=== PATIENT | female | born 1960 | race African-American/Black ===

== ENCOUNTER 2020-12-26 14:35 | Inpatient (IN) | payer MEDICARE ==
[2020-12-26] MEDS ORDERED: Bisacodyl 5 MG TAB PO PRN (16:32)
[2020-12-26] MEDS ORDERED: HYDROcodone/Acetaminophen 5/325 mg Tablet PO PRN (16:32)
[2020-12-26] MEDS ORDERED: Ondansetron PF 4 MG/2 ML Vial IVP PRN (16:32)
[2020-12-26] MEDS ORDERED: Dextrose 5% in Water 1,000 ML IV PRN (17:04)
[2020-12-26] MEDS ORDERED: Dextrose 50% Abboject 50 ML SYRINGE SLOW IVP PRN (17:04)
[2020-12-26] MEDS: cefTRIAXone\\ROCEPHIN 2 GM in Sodium Chloride 0.9% 100 ML IVPB SCH (18:25)
[2020-12-26 19:50] LABS: Bacteria/HPF None Seen HPF (None Seen); Bilirubin Negative (Negative); Blood, Urine 1+ (Negative); Clarity Clear (Clear); Glucose, Urine (Dipstick) 500 mg/dL (Negative); Ketone, Urine 20 mg/dL (Negative); Leukocyte Negative Leu/uL (Negative); Nitrite Negative (Negative); Protein, Urine (Dipstick) 70 mg/dL (Neg-Trace); RBC/HPF 0-3 HPF (0-3); Squamous Epithelial 0-3 HPF (0-3); Urobilinogen Normal mg/dL (Less than 2); WBC/HPF 0-3 HPF (0-3)
[2020-12-26 20:03] LABS: Strep pneumo Urine Ag NEGATIVE (NEGATIVE)
[2020-12-26 20:04] LABS: Legionella Urinary Ag Negative (Negative)
[2020-12-26 20:07] LABS: Specific Gravity, Urine 1.054 (1.002-1.036)
[2020-12-26] MEDS: Famotidine/PF 20 mg/2ml Vial SLOW IVP SCH (22:06)
[2020-12-26] MEDS: Benzonatate 100 MG CAP PO PRN (23:07)
[2020-12-26] MEDS: Insulin Regular 300 UNITS/3 ML VIAL SC PRN (23:44)
[2020-12-26] MEDS: guaiFENesin 200 MG TAB PO PRN (23:57)
[2020-12-27] MEDS ORDERED: ALPRAZolam 0.25 MG TAB PO SCH (02:00)
[2020-12-27] MEDS: Acetaminophen 325 MG TAB PO PRN ×2 (03:10→07:21)
[2020-12-27 03:55] LABS: Anion Gap 14 mmol/L (10-20); BUN (Urea Nitrogen) 15 mg/dL (9.8-20.1); Calc. Creatinine Clearance 117 mL/min (70-130); Carbon Dioxide 22 mmol/L (23-31); Chloride 104 mmol/L (98-107); Potassium 4.2 mmol/L (3.5-5.1); Sodium 136 mmol/L (136-145)
[2020-12-27 03:56] LABS: Calcium 9.3 mg/dL (7.8-10.44); Glucose 315 mg/dL (80-115)
[2020-12-27] MEDS ORDERED: hydrALAZINE 20 MG/ML VIAL SLOW IVP SCH (04:04)
[2020-12-27] MEDS: guaiFENesin 200 MG TAB PO PRN (04:48)
[2020-12-27 05:00] LABS: Band 14 % (5-11); Hemoglobin 13.4 g/dL (12.0-16.0); Lymphocytes 10 % (21-51); MDiff Complete? YES; Mean Corpuscular HGB CONC 34.4 g/dL (32.0-36.0); Mean Corpuscular Hemoglobin 29.8 pg (27.0-31.0); Mean Corpuscular Volume 86.6 fL (78.0-98.0); Mean Platelet Volume 8.8 fL (7.4-10.4); Neutrophil 76 % (42-75); Platelet Count 249 thou/uL (130-400); Red Blood Cell (RBC) Count 4.48 mill/uL (4.20-5.40); White Blood Cell (WBC) Count 9.9 thou/uL (4.8-10.8)
[2020-12-27] MEDS: Insulin Regular 300 UNITS/3 ML VIAL SC PRN ×3 (06:49→20:31)
[2020-12-27] MEDS ORDERED: Senokot S 8.6-50 MG TAB PO PRN (08:40)
[2020-12-27] MEDS: Ascorbic Acid 500 mg Chewable Tablet PO SCH (08:57)
[2020-12-27] MEDS: Atorvastatin Calcium 10 MG TAB PO SCH (08:57)
[2020-12-27] MEDS: Enoxaparin Sodium 40 MG/0.4 ML SYRINGE SC SCH ×2 (08:57→20:29)
[2020-12-27] MEDS: Dexamethasone 10 MG/ML VIAL SLOW IVP SCH (08:58)
[2020-12-27] MEDS: hydrALAZINE 25 MG TAB PO SCH ×4 (08:58→20:30)
[2020-12-27] MEDS: Zinc Sulfate 220 MG CAP PO SCH (08:58)
[2020-12-27] MEDS: Labetalol HCl 100 MG/20 ML VIAL SLOW IVP PRN (08:58)
[2020-12-27] MEDS: Famotidine/PF 20 mg/2ml Vial SLOW IVP SCH ×2 (08:58→20:30)
[2020-12-27] MEDS ORDERED: Azithromycin 250 MG TAB PO SCH ×2 (09:00→14:15)
[2020-12-27] MEDS ORDERED: Enoxaparin Sodium 40 MG/0.4 ML SYRINGE SC SCH (09:00)
[2020-12-27] MEDS: HumuLIN 70/30 (300 UNITS/3 ML VIAL) SC SCH ×2 (09:10→20:32)
[2020-12-27] MEDS: BARICITINIB 2 MG TAB PO SCH (10:15)
[2020-12-27] MEDS: metFORMIN 500 MG TAB PO SCH (17:18)
[2020-12-27] MEDS: cefTRIAXone\\ROCEPHIN 2 GM in Sodium Chloride 0.9% 100 ML IVPB SCH (17:24)
[2020-12-28] MEDS: Insulin Regular 300 UNITS/3 ML VIAL SC PRN ×4 (06:23→20:30)
[2020-12-28 06:44] LABS: Hemoglobin A1c 9.7 % (4.0-6.0)
[2020-12-28] MEDS: guaiFENesin 200 MG TAB PO PRN (10:34)
[2020-12-28] MEDS: Benzonatate 100 MG CAP PO PRN (10:36)
[2020-12-28] MEDS: hydrALAZINE 25 MG TAB PO SCH ×4 (10:36→20:28)
[2020-12-28] MEDS: Atorvastatin Calcium 10 MG TAB PO SCH (10:36)
[2020-12-28] MEDS: BARICITINIB 2 MG TAB PO SCH (10:36)
[2020-12-28] MEDS: metFORMIN 500 MG TAB PO SCH ×2 (10:37→18:29)
[2020-12-28] MEDS: Zinc Sulfate 220 MG CAP PO SCH (10:37)
[2020-12-28] MEDS: Ascorbic Acid 500 mg Chewable Tablet PO SCH (10:37)
[2020-12-28] MEDS: Acetaminophen 325 MG TAB PO PRN (10:37)
[2020-12-28] MEDS: Azithromycin 250 MG TAB PO SCH (10:37)
[2020-12-28] MEDS: Dexamethasone 10 MG/ML VIAL SLOW IVP SCH (10:38)
[2020-12-28] MEDS: Enoxaparin Sodium 40 MG/0.4 ML SYRINGE SC SCH ×2 (10:39→20:27)
[2020-12-28] MEDS: Famotidine/PF 20 mg/2ml Vial SLOW IVP SCH ×2 (10:39→21:59)
[2020-12-28] MEDS: HumuLIN 70/30 (300 UNITS/3 ML VIAL) SC SCH ×2 (10:40→20:30)
[2020-12-28] MEDS: Labetalol HCl 100 MG/20 ML VIAL SLOW IVP PRN (11:21)
[2020-12-28] MEDS: cefTRIAXone\\ROCEPHIN 2 GM in Sodium Chloride 0.9% 100 ML IVPB SCH (18:29)
[2020-12-29] MEDS: Insulin Regular 300 UNITS/3 ML VIAL SC PRN ×4 (06:03→19:59)
[2020-12-29] MEDS: BARICITINIB 2 MG TAB PO SCH (08:44)
[2020-12-29] MEDS: Ascorbic Acid 500 mg Chewable Tablet PO SCH (08:45)
[2020-12-29] MEDS: Enoxaparin Sodium 40 MG/0.4 ML SYRINGE SC SCH ×2 (08:45→19:57)
[2020-12-29] MEDS: hydrALAZINE 25 MG TAB PO SCH ×4 (08:46→19:57)
[2020-12-29] MEDS: Zinc Sulfate 220 MG CAP PO SCH (08:46)
[2020-12-29] MEDS: Famotidine/PF 20 mg/2ml Vial SLOW IVP SCH ×2 (08:46→19:57)
[2020-12-29] MEDS: Azithromycin 250 MG TAB PO SCH (08:46)
[2020-12-29] MEDS: metFORMIN 500 MG TAB PO SCH ×2 (08:47→18:36)
[2020-12-29] MEDS: Atorvastatin Calcium 10 MG TAB PO SCH (08:47)
[2020-12-29] MEDS: Dexamethasone 10 MG/ML VIAL SLOW IVP SCH (08:48)
[2020-12-29] MEDS: HumuLIN 70/30 (300 UNITS/3 ML VIAL) SC SCH ×2 (08:50→19:58)
[2020-12-29] MEDS: cefTRIAXone\\ROCEPHIN 2 GM in Sodium Chloride 0.9% 100 ML IVPB SCH (19:34)
[2020-12-29] MEDS: Loperamide HCl 2 MG CAP PO PRN (20:46)
[2020-12-30 04:20] LABS: Hemoglobin 12.6 g/dL (12.0-16.0); Mean Corpuscular HGB CONC 32.5 g/dL (32.0-36.0); Mean Corpuscular Hemoglobin 27.9 pg (27.0-31.0); Mean Platelet Volume 9.4 fL (7.4-10.4); Platelet Count 171 thou/uL (130-400); RBC Distribution Width 13.1 % (11.5-14.5); White Blood Cell (WBC) Count 8.2 thou/uL (4.8-10.8)
[2020-12-30 04:26] LABS: Anion Gap 15 mmol/L (10-20); BUN (Urea Nitrogen) 23 mg/dL (9.8-20.1); CRP (Inflammatory) 5.74 mg/dL (= or < 0.5); Calc. Creatinine Clearance 145 mL/min (70-130); Calcium 9.4 mg/dL (7.8-10.44); Carbon Dioxide 20 mmol/L (23-31); Chloride 108 mmol/L (98-107); Glucose 261 mg/dL (80-115); Sodium 139 mmol/L (136-145)
[2020-12-30 05:38] LABS: Band 3 % (5-11); Lymphocytes 12 % (21-51); MDiff Complete? YES; Metamyelocyte 1 % (0-0); Monocytes 5 % (0-10); Myelocyte 1 % (0-0); Neutrophil 78 % (42-75)
[2020-12-30] MEDS: Insulin Regular 300 UNITS/3 ML VIAL SC PRN ×3 (06:17→19:40)
[2020-12-30] MEDS: BARICITINIB 2 MG TAB PO SCH (09:53)
[2020-12-30] MEDS: Enoxaparin Sodium 40 MG/0.4 ML SYRINGE SC SCH ×2 (09:53→19:37)
[2020-12-30] MEDS: Dexamethasone 10 MG/ML VIAL SLOW IVP SCH (09:53)
[2020-12-30] MEDS: Famotidine/PF 20 mg/2ml Vial SLOW IVP SCH ×2 (09:54→19:37)
[2020-12-30] MEDS: Ascorbic Acid 500 mg Chewable Tablet PO SCH (09:54)
[2020-12-30] MEDS: Atorvastatin Calcium 10 MG TAB PO SCH (09:54)
[2020-12-30] MEDS: Zinc Sulfate 220 MG CAP PO SCH (09:54)
[2020-12-30] MEDS: hydrALAZINE 25 MG TAB PO SCH ×4 (09:54→19:37)
[2020-12-30] MEDS: metFORMIN 500 MG TAB PO SCH ×2 (09:54→17:34)
[2020-12-30] MEDS: HumuLIN 70/30 (300 UNITS/3 ML VIAL) SC SCH (09:55)
[2020-12-30] MEDS: cefTRIAXone\\ROCEPHIN 2 GM in Sodium Chloride 0.9% 100 ML IVPB SCH (17:34)
[2020-12-30] MEDS: Loperamide HCl 2 MG CAP PO PRN (19:37)
[2020-12-30] MEDS ORDERED: Lantus 1000 UNITS/10 ML VIAL SC SCH (21:00)
[2020-12-31] MEDS: Labetalol HCl 100 MG/20 ML VIAL SLOW IVP PRN (03:03)
[2020-12-31 04:05] LABS: Hemoglobin 13.1 g/dL (12.0-16.0); Mean Corpuscular HGB CONC 33.7 g/dL (32.0-36.0); Mean Corpuscular Hemoglobin 28.7 pg (27.0-31.0); Mean Corpuscular Volume 85.3 fL (78.0-98.0); Mean Platelet Volume 9.2 fL (7.4-10.4); Platelet Count 203 thou/uL (130-400); RBC Distribution Width 12.9 % (11.5-14.5); Red Blood Cell (RBC) Count 4.54 mill/uL (4.20-5.40); White Blood Cell (WBC) Count 8.7 thou/uL (4.8-10.8)
[2020-12-31 04:22] LABS: ALT (SGPT) 32 U/L (8-55); AST (SGOT) 48 U/L (5-34); Albumin 3.6 g/dL (3.4-4.8); Alkaline Phosphatase 96 U/L (40-110); Anion Gap 16 mmol/L (10-20); BUN (Urea Nitrogen) 21 mg/dL (9.8-20.1); Bilirubin, Direct 0.3 mg/dL (0.1-0.3); Bilirubin, Total 0.7 mg/dL (0.2-1.2); Calc. Creatinine Clearance 127 mL/min (70-130); Calcium 9.3 mg/dL (7.8-10.44); Carbon Dioxide 21 mmol/L (23-31); Chloride 109 mmol/L (98-107); Glucose 255 mg/dL (80-115); Potassium 3.8 mmol/L (3.5-5.1); Protein, Total 6.9 g/dL (5.8-8.1); Sodium 142 mmol/L (136-145)
[2020-12-31 05:03] LABS: Band 8 % (5-11); Lymphocytes 16 % (21-51); MDiff Complete? YES; Monocytes 1 % (0-10); Neutrophil 75 % (42-75); Nucleated RBC 1 % (0)
[2020-12-31] MEDS: Insulin Regular 300 UNITS/3 ML VIAL SC PRN ×3 (05:36→20:56)
[2020-12-31] MEDS: BARICITINIB 2 MG TAB PO SCH (09:11)
[2020-12-31] MEDS: Enoxaparin Sodium 40 MG/0.4 ML SYRINGE SC SCH ×2 (09:11→20:37)
[2020-12-31] MEDS: metFORMIN 500 MG TAB PO SCH (09:12)
[2020-12-31] MEDS: hydrALAZINE 25 MG TAB PO SCH ×4 (09:12→20:37)
[2020-12-31] MEDS: Atorvastatin Calcium 10 MG TAB PO SCH (09:13)
[2020-12-31] MEDS: Famotidine 20 MG TAB PO SCH ×2 (09:13→20:37)
[2020-12-31] MEDS: Dexamethasone 10 MG/ML VIAL SLOW IVP SCH ×2 (09:13→09:14)
[2020-12-31] MEDS: Ascorbic Acid 500 mg Chewable Tablet PO SCH (09:13)
[2020-12-31] MEDS: Zinc Sulfate 220 MG CAP PO SCH (09:13)
[2020-12-31] MEDS: Lantus 1000 UNITS/10 ML VIAL SC SCH ×2 (09:18→20:38)
[2020-12-31] MEDS: Benzonatate 100 MG CAP PO PRN (20:36)
[2021-01-01] MEDS: Benzonatate 100 MG CAP PO PRN ×3 (06:22→20:45)
[2021-01-01] MEDS: Insulin Regular 300 UNITS/3 ML VIAL SC PRN ×4 (06:22→20:44)
[2021-01-01 06:39] LABS: Anion Gap 14 mmol/L (10-20); BUN (Urea Nitrogen) 19 mg/dL (9.8-20.1); Calc. Creatinine Clearance 133 mL/min (70-130); Calcium 9.5 mg/dL (7.8-10.44); Carbon Dioxide 21 mmol/L (23-31); Chloride 107 mmol/L (98-107); Glucose 267 mg/dL (80-115); Potassium 4.4 mmol/L (3.5-5.1); Sodium 138 mmol/L (136-145)
[2021-01-01 06:44] LABS: Hemoglobin 14.1 g/dL (12.0-16.0); Mean Corpuscular HGB CONC 33.2 g/dL (32.0-36.0); Mean Corpuscular Volume 87.5 fL (78.0-98.0); Mean Platelet Volume 9.6 fL (7.4-10.4); Platelet Count 235 thou/uL (130-400); RBC Distribution Width 13.1 % (11.5-14.5); Red Blood Cell (RBC) Count 4.86 mill/uL (4.20-5.40); White Blood Cell (WBC) Count 10.8 thou/uL (4.8-10.8)
[2021-01-01 07:30] LABS: Band 5 % (5-11); Lymphocytes 13 % (21-51); MDiff Complete? YES; Monocytes 12 % (0-10); Neutrophil 70 % (42-75); Nucleated RBC 1 % (0); Platelet Morphology Comment Appears Adequate; RBC Morphology Normal
[2021-01-01] MEDS: Ascorbic Acid 500 mg Chewable Tablet PO SCH (08:32)
[2021-01-01] MEDS: BARICITINIB 2 MG TAB PO SCH (08:33)
[2021-01-01] MEDS: Famotidine 20 MG TAB PO SCH ×2 (08:33→20:43)
[2021-01-01] MEDS: Dexamethasone 10 MG/ML VIAL SLOW IVP SCH (08:33)
[2021-01-01] MEDS: Atorvastatin Calcium 10 MG TAB PO SCH (08:33)
[2021-01-01] MEDS: Zinc Sulfate 220 MG CAP PO SCH (08:33)
[2021-01-01] MEDS: hydrALAZINE 25 MG TAB PO SCH ×3 (08:33→17:13)
[2021-01-01] MEDS: Lantus 1000 UNITS/10 ML VIAL SC SCH ×2 (08:34→20:44)
[2021-01-01] MEDS: Enoxaparin Sodium 40 MG/0.4 ML SYRINGE SC SCH ×2 (08:35→20:43)
[2021-01-01] MEDS: guaiFENesin 200 MG TAB PO PRN (12:07)
[2021-01-01] MEDS ORDERED: Insulin Regular 300 UNITS/3 ML VIAL SC SCH (18:30)
[2021-01-02 06:44] LABS: Hemoglobin 13.7 g/dL (12.0-16.0); Mean Corpuscular HGB CONC 33.7 g/dL (32.0-36.0); Mean Corpuscular Hemoglobin 28.9 pg (27.0-31.0); Mean Corpuscular Volume 85.9 fL (78.0-98.0); Mean Platelet Volume 9.3 fL (7.4-10.4); Platelet Count 259 thou/uL (130-400); RBC Distribution Width 12.9 % (11.5-14.5); Red Blood Cell (RBC) Count 4.72 mill/uL (4.20-5.40); White Blood Cell (WBC) Count 10.6 thou/uL (4.8-10.8)
[2021-01-02 06:56] LABS: Anion Gap 16 mmol/L (10-20); BUN (Urea Nitrogen) 24 mg/dL (9.8-20.1); Calc. Creatinine Clearance 108 mL/min (70-130); Calcium 9.4 mg/dL (7.8-10.44); Carbon Dioxide 18 mmol/L (23-31); Chloride 104 mmol/L (98-107); Glucose 411 mg/dL (80-115); Potassium 4.2 mmol/L (3.5-5.1); Sodium 134 mmol/L (136-145)
[2021-01-02 08:23] LABS: Lymphocytes 13 % (21-51); MDiff Complete? YES; Monocytes 6 % (0-10); Neutrophil 81 % (42-75); Nucleated RBC 1 % (0); Platelet Morphology Comment Appears Adequate
[2021-01-02] MEDS: Loperamide HCl 2 MG CAP PO PRN (08:41)
[2021-01-02] MEDS: Ascorbic Acid 500 mg Chewable Tablet PO SCH (08:42)
[2021-01-02] MEDS: Famotidine 20 MG TAB PO SCH ×2 (08:42→21:29)
[2021-01-02] MEDS: Atorvastatin Calcium 10 MG TAB PO SCH (08:43)
[2021-01-02] MEDS: Zinc Sulfate 220 MG CAP PO SCH (08:43)
[2021-01-02] MEDS: hydrALAZINE 25 MG TAB PO SCH ×5 (08:43→21:29)
[2021-01-02] MEDS: BARICITINIB 2 MG TAB PO SCH (08:43)
[2021-01-02] MEDS: Lantus 1000 UNITS/10 ML VIAL SC SCH ×2 (08:44→21:30)
[2021-01-02] MEDS: Enoxaparin Sodium 40 MG/0.4 ML SYRINGE SC SCH ×2 (08:44→21:29)
[2021-01-02] MEDS: Dexamethasone 10 MG/ML VIAL SLOW IVP SCH (08:44)
[2021-01-02] MEDS: Insulin Regular 300 UNITS/3 ML VIAL SC PRN ×3 (13:50→21:31)
[2021-01-03] MEDS: Insulin Regular 300 UNITS/3 ML VIAL SC PRN ×4 (06:30→20:08)
[2021-01-03] MEDS: Enoxaparin Sodium 40 MG/0.4 ML SYRINGE SC SCH ×2 (08:09→20:00)
[2021-01-03] MEDS: Ascorbic Acid 500 mg Chewable Tablet PO SCH (08:10)
[2021-01-03] MEDS: Atorvastatin Calcium 10 MG TAB PO SCH (08:10)
[2021-01-03] MEDS: BARICITINIB 2 MG TAB PO SCH (08:10)
[2021-01-03] MEDS: Zinc Sulfate 220 MG CAP PO SCH (08:10)
[2021-01-03] MEDS: hydrALAZINE 25 MG TAB PO SCH ×4 (08:11→20:00)
[2021-01-03] MEDS: Famotidine 20 MG TAB PO SCH ×2 (08:11→20:00)
[2021-01-03] MEDS: Dexamethasone 10 MG/ML VIAL SLOW IVP SCH (08:11)
[2021-01-03] MEDS: Lantus 1000 UNITS/10 ML VIAL SC SCH ×2 (08:12→20:02)
[2021-01-03 12:10] LABS: Hemoglobin 13.4 g/dL (12.0-16.0); Mean Corpuscular HGB CONC 33.2 g/dL (32.0-36.0); Mean Corpuscular Hemoglobin 28.8 pg (27.0-31.0); Mean Corpuscular Volume 86.7 fL (78.0-98.0); Mean Platelet Volume 9.2 fL (7.4-10.4); Platelet Count 302 thou/uL (130-400); Red Blood Cell (RBC) Count 4.67 mill/uL (4.20-5.40); White Blood Cell (WBC) Count 14.8 thou/uL (4.8-10.8)
[2021-01-03 12:13] LABS: Anion Gap 16 mmol/L (10-20); BUN (Urea Nitrogen) 25 mg/dL (9.8-20.1); Calc. Creatinine Clearance 113 mL/min (70-130); Calcium 9.6 mg/dL (7.8-10.44); Carbon Dioxide 18 mmol/L (23-31); Chloride 104 mmol/L (98-107); Glucose 435 mg/dL (80-115); Potassium 4.5 mmol/L (3.5-5.1); Sodium 133 mmol/L (136-145)
[2021-01-03 12:18] LABS: ALT (SGPT) 28 U/L (8-55); AST (SGOT) 31 U/L (5-34); Albumin 3.5 g/dL (3.4-4.8); Alkaline Phosphatase 140 U/L (40-110); Bilirubin, Direct 0.3 mg/dL (0.1-0.3); Bilirubin, Total 0.6 mg/dL (0.2-1.2); Protein, Total 7.1 g/dL (5.8-8.1)
[2021-01-03 12:55] LABS: Band 2 % (5-11); Lymphocytes 3 % (21-51); MDiff Complete? YES; Monocytes 2 % (0-10); Neutrophil 93 % (42-75); Platelet Morphology Comment Appears Adequate; RBC Morphology Normal; Vacuoles SLIGHT
[2021-01-04] MEDS: Insulin Regular 300 UNITS/3 ML VIAL SC PRN ×3 (06:33→17:00)
[2021-01-04] MEDS: Dexamethasone 10 MG/ML VIAL SLOW IVP SCH ×2 (09:20→22:05)
[2021-01-04] MEDS: hydrALAZINE 25 MG TAB PO SCH ×4 (09:20→22:07)
[2021-01-04] MEDS: BARICITINIB 2 MG TAB PO SCH (09:20)
[2021-01-04] MEDS: Zinc Sulfate 220 MG CAP PO SCH (09:21)
[2021-01-04] MEDS: Ascorbic Acid 500 mg Chewable Tablet PO SCH (09:21)
[2021-01-04] MEDS: Atorvastatin Calcium 10 MG TAB PO SCH (09:21)
[2021-01-04] MEDS: Lantus 1000 UNITS/10 ML VIAL SC SCH ×2 (09:21→22:08)
[2021-01-04] MEDS: Enoxaparin Sodium 40 MG/0.4 ML SYRINGE SC SCH ×2 (09:21→22:05)
[2021-01-04] MEDS: Famotidine 20 MG TAB PO SCH ×2 (09:21→22:07)
[2021-01-04] MEDS: guaiFENesin 200 MG TAB PO PRN ×2 (09:22→17:01)
[2021-01-04] MEDS: Albuterol 200 PUFF (6.7GM INHALER) INH PRN (09:23)
[2021-01-04 10:03] LABS: Hemoglobin 13.7 g/dL (12.0-16.0); Mean Corpuscular HGB CONC 32.7 g/dL (32.0-36.0); Mean Corpuscular Hemoglobin 28.4 pg (27.0-31.0); Red Blood Cell (RBC) Count 4.81 mill/uL (4.20-5.40)
[2021-01-04 10:09] LABS: Anion Gap 15 mmol/L (10-20); BUN (Urea Nitrogen) 23 mg/dL (9.8-20.1); CRP (Inflammatory) 3.78 mg/dL (= or < 0.5); Calc. Creatinine Clearance 134 mL/min (70-130); Calcium 9.6 mg/dL (7.8-10.44); Carbon Dioxide 22 mmol/L (23-31); Chloride 108 mmol/L (98-107); Glucose 161 mg/dL (80-115); Potassium 3.7 mmol/L (3.5-5.1); Sodium 141 mmol/L (136-145)
[2021-01-04 10:17] LABS: Band 3 % (5-11); Eosinophils 1 % (0-10); Lymphocytes 16 % (21-51); MDiff Complete? YES; Monocytes 2 % (0-10); Neutrophil 78 % (42-75); Platelet Count 335 thou/uL (130-400); Platelet Morphology Comment Appears Adequate
[2021-01-04] MEDS: Benzonatate 100 MG CAP PO PRN (12:24)
[2021-01-04] MEDS ORDERED: Insulin Regular 300 UNITS/3 ML VIAL SC SCH (18:15)
[2021-01-04 21:34] LABS: Glucose 617 mg/dL (80-115)
[2021-01-04] MEDS ORDERED: Dextrose 50% Abboject 50 ML SYRINGE SLOW IVP PRN (21:38)
[2021-01-04] MEDS ORDERED: Dextrose 5% in Water 1,000 ML IV PRN (21:38)
[2021-01-04] MEDS ORDERED: HumaLOG 300 UNITS/3 ML VIAL SC SCH (22:00)
[2021-01-05] MEDS: HumaLOG 300 UNITS/3 ML VIAL SC PRN ×4 (05:31→20:51)
[2021-01-05] MEDS: Enoxaparin Sodium 40 MG/0.4 ML SYRINGE SC SCH ×2 (07:49→20:49)
[2021-01-05] MEDS: Ascorbic Acid 500 mg Chewable Tablet PO SCH (07:49)
[2021-01-05] MEDS: hydrALAZINE 25 MG TAB PO SCH ×4 (07:49→20:50)
[2021-01-05] MEDS: Dexamethasone 10 MG/ML VIAL SLOW IVP SCH ×2 (07:50→20:49)
[2021-01-05] MEDS: Atorvastatin Calcium 10 MG TAB PO SCH (07:50)
[2021-01-05] MEDS: Zinc Sulfate 220 MG CAP PO SCH (07:50)
[2021-01-05] MEDS: BARICITINIB 2 MG TAB PO SCH (07:50)
[2021-01-05] MEDS: Benzonatate 100 MG CAP PO PRN ×3 (07:50→20:30)
[2021-01-05] MEDS: Famotidine 20 MG TAB PO SCH ×2 (07:50→20:49)
[2021-01-05] MEDS: Lantus 1000 UNITS/10 ML VIAL SC SCH ×2 (07:51→20:50)
[2021-01-05 08:53] LABS: Anion Gap 16 mmol/L (10-20); BUN (Urea Nitrogen) 21 mg/dL (9.8-20.1); Calc. Creatinine Clearance 129 mL/min (70-130); Calcium 9.2 mg/dL (7.8-10.44); Carbon Dioxide 19 mmol/L (23-31); Chloride 105 mmol/L (98-107); Glucose 346 mg/dL (80-115); Hemoglobin 12.4 g/dL (12.0-16.0); Mean Corpuscular HGB CONC 32.5 g/dL (32.0-36.0); Mean Corpuscular Hemoglobin 28.2 pg (27.0-31.0); Potassium 4.7 mmol/L (3.5-5.1); RBC Distribution Width 12.9 % (11.5-14.5); Red Blood Cell (RBC) Count 4.38 mill/uL (4.20-5.40); Sodium 135 mmol/L (136-145)
[2021-01-05 09:31] LABS: Hypersemented Neutrophil SLIGHT; Lymphocytes 4 % (21-51); MDiff Complete? YES; Monocytes 2 % (0-10); Neutrophil 94 % (42-75); Platelet Count 308 thou/uL (130-400); Platelet Morphology Comment Appears Adequate; Vacuoles SLIGHT; White Blood Cell (WBC) Count 10.1 thou/uL (4.8-10.8)
[2021-01-05] MEDS: Albuterol 200 PUFF (6.7GM INHALER) INH PRN ×3 (12:55→21:10)
[2021-01-05] MEDS: guaiFENesin 200 MG TAB PO PRN (16:01)
[2021-01-05] MEDS: Pantoprazole 40 MG VIAL IVP SCH (20:55)
[2021-01-06] MEDS: Benzonatate 100 MG CAP PO PRN (02:14)
[2021-01-06] MEDS: HumaLOG 300 UNITS/3 ML VIAL SC PRN ×4 (05:53→20:53)
[2021-01-06] MEDS: BARICITINIB 2 MG TAB PO SCH (08:45)
[2021-01-06] MEDS: Zinc Sulfate 220 MG CAP PO SCH (08:45)
[2021-01-06] MEDS: hydrALAZINE 25 MG TAB PO SCH ×4 (08:46→20:51)
[2021-01-06] MEDS: Ascorbic Acid 500 mg Chewable Tablet PO SCH (08:46)
[2021-01-06] MEDS: Atorvastatin Calcium 10 MG TAB PO SCH (08:46)
[2021-01-06] MEDS: Famotidine 20 MG TAB PO SCH ×2 (08:46→20:51)
[2021-01-06] MEDS: Dexamethasone 10 MG/ML VIAL SLOW IVP SCH ×2 (08:46→20:51)
[2021-01-06] MEDS: metFORMIN 500 MG TAB PO SCH ×2 (08:46→18:08)
[2021-01-06] MEDS: Enoxaparin Sodium 40 MG/0.4 ML SYRINGE SC SCH ×2 (08:47→20:51)
[2021-01-06] MEDS: Lantus 1000 UNITS/10 ML VIAL SC SCH ×2 (08:49→20:52)
[2021-01-06] MEDS: Pantoprazole 40 MG VIAL IVP SCH ×2 (09:14→11:17)
[2021-01-06 09:21] LABS: ALT (SGPT) 34 U/L (8-55); AST (SGOT) 17 U/L (5-34); Albumin 3.4 g/dL (3.4-4.8); Alkaline Phosphatase 99 U/L (40-110); Anion Gap 12 mmol/L (10-20); BUN (Urea Nitrogen) 30 mg/dL (9.8-20.1); Bilirubin, Direct 0.2 mg/dL (0.1-0.3); Bilirubin, Total 0.5 mg/dL (0.2-1.2); Calc. Creatinine Clearance 102 mL/min (70-130); Calcium 9.6 mg/dL (7.8-10.44); Carbon Dioxide 23 mmol/L (23-31); Chloride 103 mmol/L (98-107); Glucose 467 mg/dL (80-115); Potassium 4.7 mmol/L (3.5-5.1); Protein, Total 6.8 g/dL (5.8-8.1); Sodium 133 mmol/L (136-145)
[2021-01-06 09:27] LABS: Hemoglobin 12.4 g/dL (12.0-16.0); Lymphocytes 8 % (21-51); MDiff Complete? YES; Mean Corpuscular HGB CONC 32.2 g/dL (32.0-36.0); Mean Corpuscular Hemoglobin 28.4 pg (27.0-31.0); Mean Corpuscular Volume 88.2 fL (78.0-98.0); Mean Platelet Volume 8.9 fL (7.4-10.4); Monocytes 5 % (0-10); Neutrophil 87 % (42-75); Platelet Count 380 thou/uL (130-400); RBC Distribution Width 13.2 % (11.5-14.5); Red Blood Cell (RBC) Count 4.38 mill/uL (4.20-5.40); White Blood Cell (WBC) Count 11.8 thou/uL (4.8-10.8)
[2021-01-06] MEDS: guaiFENesin 200 MG TAB PO PRN (18:06)
[2021-01-06 18:30] LABS: Glucose 567 mg/dL (80-115)
[2021-01-07] MEDS: HumaLOG 300 UNITS/3 ML VIAL SC PRN ×4 (06:22→20:48)
[2021-01-07 07:07] LABS: Mean Corpuscular HGB CONC 33.5 g/dL (32.0-36.0); Mean Corpuscular Hemoglobin 29.6 pg (27.0-31.0); Mean Corpuscular Volume 88.3 fL (78.0-98.0); Mean Platelet Volume 8.8 fL (7.4-10.4); Platelet Count 368 thou/uL (130-400); Red Blood Cell (RBC) Count 4.06 mill/uL (4.20-5.40)
[2021-01-07 07:17] LABS: Anion Gap 10 mmol/L (10-20); BUN (Urea Nitrogen) 29 mg/dL (9.8-20.1); Calc. Creatinine Clearance 127 mL/min (70-130); Calcium 9.4 mg/dL (7.8-10.44); Carbon Dioxide 25 mmol/L (23-31); Chloride 103 mmol/L (98-107); Glucose 318 mg/dL (80-115); Potassium 4.5 mmol/L (3.5-5.1); Sodium 133 mmol/L (136-145)
[2021-01-07 07:42] LABS: Band 1 % (5-11); Lymphocytes 9 % (21-51); MDiff Complete? YES; Monocytes 1 % (0-10); Neutrophil 89 % (42-75); Platelet Morphology Comment Appears Adequate; RBC Morphology Normal
[2021-01-07] MEDS: Ascorbic Acid 500 mg Chewable Tablet PO SCH (07:43)
[2021-01-07] MEDS: Enoxaparin Sodium 40 MG/0.4 ML SYRINGE SC SCH ×2 (07:43→20:50)
[2021-01-07] MEDS: hydrALAZINE 25 MG TAB PO SCH ×4 (07:43→20:50)
[2021-01-07] MEDS: BARICITINIB 2 MG TAB PO SCH (07:44)
[2021-01-07] MEDS: Benzonatate 100 MG CAP PO PRN ×2 (07:44→16:26)
[2021-01-07] MEDS: Atorvastatin Calcium 10 MG TAB PO SCH (07:44)
[2021-01-07] MEDS: Zinc Sulfate 220 MG CAP PO SCH (07:44)
[2021-01-07] MEDS: metFORMIN 500 MG TAB PO SCH ×2 (07:44→16:16)
[2021-01-07] MEDS: Famotidine 20 MG TAB PO SCH ×2 (07:45→20:50)
[2021-01-07] MEDS: Dexamethasone 10 MG/ML VIAL SLOW IVP SCH ×2 (07:56→20:50)
[2021-01-07] MEDS: Pantoprazole 40 MG VIAL IVP SCH (07:56)
[2021-01-07] MEDS: Lantus 1000 UNITS/10 ML VIAL SC SCH ×2 (07:56→20:50)
[2021-01-07] MEDS: guaiFENesin 200 MG TAB PO PRN ×2 (12:49→20:54)
[2021-01-07] MEDS: Albuterol 200 PUFF (6.7GM INHALER) INH PRN (14:26)
[2021-01-07] MEDS: Acetaminophen 325 MG TAB PO PRN (16:16)
[2021-01-08] MEDS: HumaLOG 300 UNITS/3 ML VIAL SC PRN ×3 (05:51→16:58)
[2021-01-08 06:57] LABS: Hemoglobin 12.1 g/dL (12.0-16.0); Mean Corpuscular HGB CONC 32.4 g/dL (32.0-36.0); Mean Corpuscular Hemoglobin 28.9 pg (27.0-31.0); Mean Corpuscular Volume 89.3 fL (78.0-98.0); Mean Platelet Volume 8.4 fL (7.4-10.4); Platelet Count 389 thou/uL (130-400); RBC Distribution Width 13.2 % (11.5-14.5); Red Blood Cell (RBC) Count 4.17 mill/uL (4.20-5.40); White Blood Cell (WBC) Count 7.1 thou/uL (4.8-10.8)
[2021-01-08 07:10] LABS: Anion Gap 12 mmol/L (10-20); BUN (Urea Nitrogen) 34 mg/dL (9.8-20.1); Calc. Creatinine Clearance 108 mL/min (70-130); Calcium 9.2 mg/dL (7.8-10.44); Carbon Dioxide 22 mmol/L (23-31); Chloride 104 mmol/L (98-107); Glucose 298 mg/dL (80-115); Potassium 4.3 mmol/L (3.5-5.1); Sodium 134 mmol/L (136-145)
[2021-01-08] MEDS: BARICITINIB 2 MG TAB PO SCH (08:13)
[2021-01-08] MEDS: Lantus 1000 UNITS/10 ML VIAL SC SCH (08:13)
[2021-01-08] MEDS: hydrALAZINE 25 MG TAB PO SCH ×5 (08:13→22:03)
[2021-01-08] MEDS: metFORMIN 500 MG TAB PO SCH ×2 (08:13→16:52)
[2021-01-08] MEDS: Enoxaparin Sodium 40 MG/0.4 ML SYRINGE SC SCH ×2 (08:14→22:02)
[2021-01-08] MEDS: Ascorbic Acid 500 mg Chewable Tablet PO SCH (08:14)
[2021-01-08] MEDS: Famotidine 20 MG TAB PO SCH (08:14)
[2021-01-08] MEDS: Dexamethasone 10 MG/ML VIAL SLOW IVP SCH (08:14)
[2021-01-08] MEDS: Zinc Sulfate 220 MG CAP PO SCH (08:14)
[2021-01-08] MEDS: Atorvastatin Calcium 10 MG TAB PO SCH (08:14)
[2021-01-08] MEDS: Benzonatate 100 MG CAP PO PRN ×3 (08:54→22:18)
[2021-01-08 09:20] LABS: Band 2 % (5-11); Lymphocytes 12 % (21-51); MDiff Complete? YES; Monocytes 6 % (0-10); Neutrophil 80 % (42-75); Platelet Morphology Comment Appears Adequate; Polychromasia SLIGHT = 2-3 cells (100X) (0-2/hpf)
[2021-01-08] MEDS: guaiFENesin 200 MG TAB PO PRN (12:13)
[2021-01-08] MEDS ORDERED: Lantus 1000 UNITS/10 ML VIAL SC SCH ×2 (21:00)
[2021-01-08] MEDS: Acetaminophen 325 MG TAB PO PRN (22:03)
[2021-01-09] MEDS: Zinc Sulfate 220 MG CAP PO SCH (07:47)
[2021-01-09] MEDS: Atorvastatin Calcium 10 MG TAB PO SCH (07:47)
[2021-01-09] MEDS: metFORMIN 500 MG TAB PO SCH ×2 (07:47→16:14)
[2021-01-09] MEDS: Enoxaparin Sodium 40 MG/0.4 ML SYRINGE SC SCH ×2 (07:47→20:43)
[2021-01-09] MEDS: glipiZIDE 5 MG TAB PO SCH ×2 (07:47→16:14)
[2021-01-09] MEDS: Ascorbic Acid 500 mg Chewable Tablet PO SCH (07:47)
[2021-01-09] MEDS: BARICITINIB 2 MG TAB PO SCH (07:48)
[2021-01-09] MEDS: hydrALAZINE 25 MG TAB PO SCH ×3 (07:48→20:44)
[2021-01-09] MEDS: Benzonatate 100 MG CAP PO PRN ×2 (07:51→20:44)
[2021-01-09 07:53] LABS: Hemoglobin 12.8 g/dL (12.0-16.0); Mean Corpuscular Hemoglobin 28.4 pg (27.0-31.0); Mean Corpuscular Volume 88.6 fL (78.0-98.0); Mean Platelet Volume 8.3 fL (7.4-10.4); Platelet Count 429 thou/uL (130-400); RBC Distribution Width 13.4 % (11.5-14.5); Red Blood Cell (RBC) Count 4.49 mill/uL (4.20-5.40); White Blood Cell (WBC) Count 7.6 thou/uL (4.8-10.8)
[2021-01-09 08:01] LABS: ALT (SGPT) 19 U/L (8-55); AST (SGOT) 13 U/L (5-34); Albumin 3.3 g/dL (3.4-4.8); Alkaline Phosphatase 64 U/L (40-110); Anion Gap 10 mmol/L (10-20); BUN (Urea Nitrogen) 31 mg/dL (9.8-20.1); Bilirubin, Direct 0.3 mg/dL (0.1-0.3); Bilirubin, Total 0.7 mg/dL (0.2-1.2); Calc. Creatinine Clearance 117 mL/min (70-130); Calcium 9.7 mg/dL (7.8-10.44); Carbon Dioxide 28 mmol/L (23-31); Chloride 103 mmol/L (98-107); Glucose 136 mg/dL (80-115); Magnesium 2.2 mg/dL (1.6-2.6); Potassium 4.4 mmol/L (3.5-5.1); Protein, Total 6.3 g/dL (5.8-8.1); Sodium 137 mmol/L (136-145)
[2021-01-09] MEDS ORDERED: Dexamethasone 10 MG/ML VIAL SLOW IVP SCH (09:00)
[2021-01-09] MEDS ORDERED: Lantus 1000 UNITS/10 ML VIAL SC SCH ×2 (09:00→10:58)
[2021-01-09 10:15] LABS: Band 1 % (5-11); Lymphocytes 16 % (21-51); MDiff Complete? YES; Monocytes 7 % (0-10); Neutrophil 76 % (42-75); Platelet Morphology Comment Appears Increased; RBC Morphology Normal
[2021-01-09] MEDS: HumaLOG 300 UNITS/3 ML VIAL SC PRN ×2 (12:18→17:34)
[2021-01-09] MEDS: Albuterol 200 PUFF (6.7GM INHALER) INH PRN (16:13)
[2021-01-09] MEDS: guaiFENesin ER 600 MG TAB PO SCH (20:44)
[2021-01-10] MEDS ORDERED: cloNIDine 0.1 MG TAB PO PRN (06:26)
[2021-01-10] MEDS: guaiFENesin ER 600 MG TAB PO SCH ×2 (08:26→20:31)
[2021-01-10] MEDS: hydrALAZINE 25 MG TAB PO SCH ×3 (08:26→20:32)
[2021-01-10] MEDS: Dexamethasone 4 MG TAB PO SCH ×2 (08:27→16:48)
[2021-01-10] MEDS: BARICITINIB 2 MG TAB PO SCH (08:27)
[2021-01-10] MEDS: Atorvastatin Calcium 10 MG TAB PO SCH (08:27)
[2021-01-10] MEDS: Ascorbic Acid 500 mg Chewable Tablet PO SCH (08:28)
[2021-01-10] MEDS: Enoxaparin Sodium 40 MG/0.4 ML SYRINGE SC SCH ×2 (08:28→20:31)
[2021-01-10] MEDS: Lantus 1000 UNITS/10 ML VIAL SC SCH (08:28)
[2021-01-10] MEDS: glipiZIDE 5 MG TAB PO SCH ×2 (08:28→16:48)
[2021-01-10] MEDS: metFORMIN 500 MG TAB PO SCH ×2 (08:28→16:48)
[2021-01-10] MEDS: Zinc Sulfate 220 MG CAP PO SCH (08:28)
[2021-01-10] MEDS: Albuterol 200 PUFF (6.7GM INHALER) INH PRN (09:33)
[2021-01-10] MEDS ORDERED: Meclizine HCl 25 MG TAB PO PRN (12:27)
[2021-01-10] MEDS ORDERED: Polyethylene Glycol 3350 17 GM Packet PO SCH (12:30)
[2021-01-10] MEDS: Benzonatate 100 MG CAP PO PRN ×2 (14:31→20:31)
[2021-01-10] MEDS: HumaLOG 300 UNITS/3 ML VIAL SC PRN ×2 (16:48→20:36)
[2021-01-10] MEDS: Senokot S 8.6-50 MG TAB PO SCH (20:31)
[2021-01-10] MEDS ORDERED: hydrALAZINE 25 MG TAB PO SCH (21:00)
[2021-01-10] MEDS ORDERED: Lantus 1000 UNITS/10 ML VIAL SC SCH (21:00)
[2021-01-11 06:29] LABS: #Lymphocytes 0.6 thou/uL (1.20-3.40); #Monocytes 0.4 thou/uL (0.11-0.59); #Neutrophils 4.8 thou/uL (1.40-6.50); %Eosinophils 0.4 % (0.0-10.0); %Lymphocytes 10.4 % (21.0-51.0); %Monocytes 6.4 % (0.0-10.0); %Neutrophils 82.9 % (42.0-75.0); Mean Corpuscular Hemoglobin 28.1 pg (27.0-31.0); Mean Corpuscular Volume 87.8 fL (78.0-98.0); Mean Platelet Volume 7.8 fL (7.4-10.4); Platelet Count 400 thou/uL (130-400); RBC Distribution Width 13.2 % (11.5-14.5); Red Blood Cell (RBC) Count 4.27 mill/uL (4.20-5.40); White Blood Cell (WBC) Count 5.7 thou/uL (4.8-10.8)
[2021-01-11 06:42] LABS: Anion Gap 13 mmol/L (10-20); BUN (Urea Nitrogen) 27 mg/dL (9.8-20.1); Calc. Creatinine Clearance 152 mL/min (70-130); Calcium 9.5 mg/dL (7.8-10.44); Carbon Dioxide 24 mmol/L (23-31); Chloride 105 mmol/L (98-107); Glucose 188 mg/dL (80-115); Potassium 4.8 mmol/L (3.5-5.1); Sodium 137 mmol/L (136-145)
[2021-01-11] MEDS: Zinc Sulfate 220 MG CAP PO SCH (08:41)
[2021-01-11] MEDS: Dexamethasone 4 MG TAB PO SCH ×2 (08:41→16:21)
[2021-01-11] MEDS: Enoxaparin Sodium 40 MG/0.4 ML SYRINGE SC SCH ×2 (08:41→21:42)
[2021-01-11] MEDS: guaiFENesin ER 600 MG TAB PO SCH ×2 (08:41→21:42)
[2021-01-11] MEDS: Atorvastatin Calcium 10 MG TAB PO SCH (08:42)
[2021-01-11] MEDS: hydrALAZINE 25 MG TAB PO SCH ×3 (08:42→21:42)
[2021-01-11] MEDS: Senokot S 8.6-50 MG TAB PO SCH ×2 (08:42→21:42)
[2021-01-11] MEDS: glipiZIDE 5 MG TAB PO SCH ×2 (08:42→16:21)
[2021-01-11] MEDS: Ascorbic Acid 500 mg Chewable Tablet PO SCH (08:42)
[2021-01-11] MEDS: metFORMIN 500 MG TAB PO SCH ×2 (08:43→16:21)
[2021-01-11] MEDS: Lantus 1000 UNITS/10 ML VIAL SC SCH (08:43)
[2021-01-11] MEDS: Polyethylene Glycol 3350 17 GM Packet PO SCH (08:43)
[2021-01-11] MEDS: HumaLOG 300 UNITS/3 ML VIAL SC PRN ×5 (11:15→21:43)
[2021-01-11] MEDS ORDERED: hydrALAZINE 25 MG TAB PO SCH (15:45)
[2021-01-12] MEDS: HumaLOG 300 UNITS/3 ML VIAL SC PRN ×3 (05:47→21:23)
[2021-01-12] MEDS: Ascorbic Acid 500 mg Chewable Tablet PO SCH (08:11)
[2021-01-12] MEDS: Atorvastatin Calcium 10 MG TAB PO SCH (08:11)
[2021-01-12] MEDS: Senokot S 8.6-50 MG TAB PO SCH ×2 (08:11→21:22)
[2021-01-12] MEDS: metFORMIN 500 MG TAB PO SCH ×2 (08:12→15:56)
[2021-01-12] MEDS: Zinc Sulfate 220 MG CAP PO SCH (08:12)
[2021-01-12] MEDS: guaiFENesin ER 600 MG TAB PO SCH ×2 (08:12→21:23)
[2021-01-12] MEDS: Polyethylene Glycol 3350 17 GM Packet PO SCH (08:12)
[2021-01-12] MEDS: Dexamethasone 4 MG TAB PO SCH ×2 (08:12→15:56)
[2021-01-12] MEDS: glipiZIDE 5 MG TAB PO SCH ×2 (08:12→15:56)
[2021-01-12] MEDS: hydrALAZINE 25 MG TAB PO SCH ×3 (08:13→21:23)
[2021-01-12] MEDS: Lantus 1000 UNITS/10 ML VIAL SC SCH (08:13)
[2021-01-12] MEDS: Enoxaparin Sodium 40 MG/0.4 ML SYRINGE SC SCH ×2 (08:14→21:23)
[2021-01-12] MEDS: Benzonatate 100 MG CAP PO PRN (21:23)
[2021-01-13] MEDS: HumaLOG 300 UNITS/3 ML VIAL SC PRN ×3 (05:50→20:58)
[2021-01-13] MEDS: hydrALAZINE 25 MG TAB PO SCH ×4 (08:14→20:57)
[2021-01-13] MEDS: Ascorbic Acid 500 mg Chewable Tablet PO SCH (08:14)
[2021-01-13] MEDS: metFORMIN 500 MG TAB PO SCH ×2 (08:14→17:40)
[2021-01-13] MEDS: Senokot S 8.6-50 MG TAB PO SCH ×2 (08:14→20:57)
[2021-01-13] MEDS: Zinc Sulfate 220 MG CAP PO SCH (08:15)
[2021-01-13] MEDS: Enoxaparin Sodium 40 MG/0.4 ML SYRINGE SC SCH ×2 (08:15→20:57)
[2021-01-13] MEDS: Dexamethasone 4 MG TAB PO SCH ×2 (08:15→17:40)
[2021-01-13] MEDS: guaiFENesin ER 600 MG TAB PO SCH ×2 (08:15→20:57)
[2021-01-13] MEDS: Atorvastatin Calcium 10 MG TAB PO SCH (08:15)
[2021-01-13] MEDS: Polyethylene Glycol 3350 17 GM Packet PO SCH (08:16)
[2021-01-13] MEDS: Lantus 1000 UNITS/10 ML VIAL SC SCH (08:18)
[2021-01-13] MEDS: glipiZIDE 5 MG TAB PO SCH ×2 (08:18→17:40)
[2021-01-13 09:46] LABS: Anion Gap 11 mmol/L (10-20); BUN (Urea Nitrogen) 21 mg/dL (9.8-20.1); Calc. Creatinine Clearance 150 mL/min (70-130); Calcium 9.4 mg/dL (7.8-10.44); Carbon Dioxide 27 mmol/L (23-31); Chloride 103 mmol/L (98-107); Glucose 129 mg/dL (80-115); Potassium 4.3 mmol/L (3.5-5.1); Sodium 137 mmol/L (136-145)
[2021-01-13 10:37] VITALS: BMI 47.7
[2021-01-13 11:08] LABS: #Eosinphils 0.1 thou/uL (0.0-0.7); #Lymphocytes 1.4 thou/uL (1.20-3.40); #Monocytes 0.5 thou/uL (0.11-0.59); #Neutrophils 5.1 thou/uL (1.40-6.50); %Basophils 0.6 % (0.0-1.0); %Eosinophils 0.7 % (0.0-10.0); %Monocytes 6.4 % (0.0-10.0); %Neutrophils 72.3 % (42.0-75.0); Hemoglobin 11.2 g/dL (12.0-16.0); Lymphocytes 14 % (21-51); MDiff Complete? YES; Mean Corpuscular HGB CONC 32.5 g/dL (32.0-36.0); Mean Corpuscular Hemoglobin 29.2 pg (27.0-31.0); Mean Corpuscular Volume 89.7 fL (78.0-98.0); Mean Platelet Volume 8.1 fL (7.4-10.4); Monocytes 3 % (0-10); Neutrophil 81 % (42-75); Platelet Count 326 thou/uL (130-400); RBC Distribution Width 13.2 % (11.5-14.5); RBC Morphology Normal; Reactive Lymphocytes 2 % (0-10); Red Blood Cell (RBC) Count 3.82 mill/uL (4.20-5.40); White Blood Cell (WBC) Count 6.9 thou/uL (4.8-10.8)
[2021-01-13] MEDS: Benzonatate 100 MG CAP PO PRN (20:57)
[2021-01-14] MEDS: HumaLOG 300 UNITS/3 ML VIAL SC PRN (05:32)
[2021-01-14] MEDS ORDERED: glipiZIDE 10 MG TAB PO SCH (07:30)
[2021-01-14] MEDS: Ascorbic Acid 500 mg Chewable Tablet PO SCH (07:59)
[2021-01-14] MEDS: metFORMIN 500 MG TAB PO SCH (07:59)
[2021-01-14] MEDS: Zinc Sulfate 220 MG CAP PO SCH (08:00)
[2021-01-14] MEDS ORDERED: Dexamethasone 4 MG TAB PO SCH (08:00)
[2021-01-14] MEDS: Atorvastatin Calcium 10 MG TAB PO SCH (08:00)
[2021-01-14] MEDS: guaiFENesin ER 600 MG TAB PO SCH (08:00)
[2021-01-14] MEDS: Enoxaparin Sodium 40 MG/0.4 ML SYRINGE SC SCH (08:00)
[2021-01-14] MEDS: Polyethylene Glycol 3350 17 GM Packet PO SCH (08:01)
[2021-01-14] MEDS: Senokot S 8.6-50 MG TAB PO SCH (08:01)
[2021-01-14] MEDS: hydrALAZINE 25 MG TAB PO SCH (08:02)
[2021-01-14 08:03] VITALS: BP 123/90
[2021-01-14 08:21] VITALS: TEMP 98
[2021-01-14] MEDS ORDERED: Lantus 1000 UNITS/10 ML VIAL SC SCH ×2 (09:00)
== END 2021-01-14 11:39 | disposition home health service (06) | DRG 177 ==
LOC: IMCU/EMU 15:07 → T4-A 12-31 18:51
PROVIDERS: ADMIT Hospitalist; ATTEND Internal Medicine
PROC: 8E0ZXY6 Isolation (ICD-10-PCS; principal; 2020-12-26)
PROC: XW0DXM6 Introduction of Baricitinib into Mouth and Pharynx, External Approach, New Technology Group 6 (ICD-10-PCS; 2020-12-27)
PROC: 3E0333Z Introduction of Anti-inflammatory into Peripheral Vein, Percutaneous Approach (ICD-10-PCS; 2020-12-27)
DX: U07.1 COVID-19 (principal); J12.82 Pneumonia due to coronavirus disease 2019; J96.01 Acute respiratory failure with hypoxia; Z68.42 Body mass index [BMI] 45.0-49.9, adult; E66.01 Morbid (severe) obesity due to excess calories; Z66 Do not resuscitate; E11.69 Type 2 diabetes mellitus with other specified complication; R19.7 Diarrhea, unspecified; E11.65 Type 2 diabetes mellitus with hyperglycemia; T38.0X5A Adverse effect of glucocorticoids and synthetic analogues, initial encounter; N18.30 Chronic kidney disease, stage 3 unspecified; E78.5 Hyperlipidemia, unspecified; G47.30 Sleep apnea, unspecified; I13.10 Hypertensive heart and chronic kidney disease without heart failure, with stage 1 through stage 4 chronic kidney disease, or unspecified chronic kidney disease; Z79.899 Other long term (current) drug therapy; Z90.710 Acquired absence of both cervix and uterus; Z90.49 Acquired absence of other specified parts of digestive tract; E11.22 Type 2 diabetes mellitus with diabetic chronic kidney disease
CPT/HCPCS: 36415; 36416; 71045; 80048; 80076; 81001; 82728; 83036; 83735; 84145; 85007; 85025; 85027; 85379; 86140; 87449; 87899; 93005; 93010; C9113; J0360; J0696; J1100; J1650; J1815; J3490; J8540; S0028